=== PATIENT | male | born 1965 | race Caucasian/White ===

== ENCOUNTER 2024-06-05 17:50 | Inpatient (IN) | payer OTHER ==
[2024-06-05 18:43] VITALS: BMI 31.1
[2024-06-05] MEDS ORDERED: NICOTINE POLACRILEX 2 MG LOZENGE BC PRN (19:21)
[2024-06-05] MEDS ORDERED: METHOCARBAMOL 500 MG TABLET PO PRN (19:21)
[2024-06-05] MEDS ORDERED: POLYETHYLENE GLYCOL (HEALTHYLAX) 3350 17 GM PACKET PO PRN (19:21)
[2024-06-05] MEDS ORDERED: BENZONATATE 200 MG CAPSULE PO PRN (19:21)
[2024-06-05] MEDS ORDERED: ACETAMINOPHEN 325 MG TABLET (FP) PO PRN (19:21)
[2024-06-05] MEDS ORDERED: MAG HYDROX/AL HYDROX/SIMETH 30 ML UNIT-DOSE CUP PO PRN (19:21)
[2024-06-05] MEDS ORDERED: ONDANSETRON *ODT* 4 MG TABLET SL PRN (19:21)
[2024-06-05] MEDS ORDERED: IBUPROFEN 400 MG TABLET (FP) PO PRN (19:21)
[2024-06-05] MEDS ORDERED: IBUPROFEN 600 MG TABLET (FP) PO PRN (19:21)
[2024-06-05] MEDS ORDERED: hydrOXYzine PAMOATE 25 MG CAPSULE (FP) PO PRN (19:21)
[2024-06-05] MEDS ORDERED: LOPERAMIDE HCL 2 MG CAPSULE PO PRN (19:21)
[2024-06-05] MEDS ORDERED: P-EPHED 60MG/TRIPROLIDI 2.5MG TABLET PO PRN (19:21)
[2024-06-05] MEDS ORDERED: MAGNESIUM HYDROX 2400MG/30ML ORAL SUSPENSION 30 ML CUP PO PRN (19:21)
[2024-06-05] MEDS ORDERED: NICOTINE POLACRILEX 2 MG GUM BUC PRN (19:21)
[2024-06-05] MEDS ORDERED: BISMUTH SUBSALICYLATE 524 MG/30 ML PO PRN (19:21)
[2024-06-05] MEDS ORDERED: DICYCLOMINE HCL 10 MG CAPSULE PO PRN (19:21)
[2024-06-05] MEDS ORDERED: NALOXONE (NARCAN) HCL 4 MG/0.1 ML SPRAY NS PRN (19:21)
[2024-06-05] MEDS ORDERED: diazePAM 5 MG TABLET ONE (20:27)
[2024-06-05] MEDS: diazePAM 5 MG TABLET PO ONE (20:32)
[2024-06-05] MEDS ORDERED: MELATONIN 5 MG TABLETS PO SCH (22:00)
[2024-06-05] MEDS ORDERED: PRENATAL VITAMINS W/ FOLIC ACID TABLET (FP) PO ONE (22:19)
[2024-06-05] MEDS: MELATONIN 5 MG TABLETS PO SCH (22:25)
[2024-06-05] MEDS: THIAMINE 100 MG TABLET PO SCH (22:25)
[2024-06-05] MEDS: guaiFENesin 600 MG TABLET.ER (FP) PO PRN (22:44)
[2024-06-05] MEDS ORDERED: diazePAM 5 MG TABLET PO SCH (23:00)
[2024-06-05] MEDS: diazePAM 5 MG TABLET PO SCH (23:47)
[2024-06-06] MEDS: diazePAM 5 MG TABLET PO PRN (01:13)
[2024-06-06] MEDS: BENZOCAINE/MENTHOL (CHLORASEPTIC ) LOZENGE MM PRN (01:16)
[2024-06-06 09:25] LABS: POTASSIUM 3.1 mmol/L (3.5-5.1)
[2024-06-06 09:32] LABS: CALCIUM 8.4 mg/dL (8.5-10.1)
[2024-06-06 09:33] LABS: ALBUMIN 3.6 g/dl (3.4-5.0); BLOOD UREA NITROGEN 10.7 mg/dL (7-18)
[2024-06-06 09:36] LABS: CREATININE 0.7 mg/dL (0.55-1.3); HEMATOCRIT 40.4 % (35.4-49); HEMOGLOBIN 13.7 GM/dL (11.7-16.9); MCHC 33.9 g/dl (32.0-35.9); MEAN CELL VOLUME 88.3 fl (80-96); MEAN PLT VOLUME 10.2 fl (7.5-11.1); PLATELET COUNT 111 10^3/uL (134-434); RBC 4.58 M/mm3 (4.00-5.60); RDW 12.5 % (11.9-15.9); WHITE BLOOD COUNT 8.8 K/mm3 (4.0-10.0)
[2024-06-06 09:37] LABS: BILIRUBIN,TOTAL 0.9 mg/dL (0.2-1); TOT PROT 6.1 g/dl (6.4-8.2)
[2024-06-06] MEDS: PRENATAL VITAMINS W/ FOLIC ACID TABLET (FP) PO SCH (10:58)
[2024-06-06] MEDS: POTASSIUM CHLORIDE ORAL LIQUID 20 MEQ/15 ML PO ONE ×3 (11:30→18:27)
[2024-06-07] MEDS: diazePAM 5 MG TABLET PO SCH (05:52)
[2024-06-07] MEDS ORDERED: ALBUTEROL SO4 0.083% IH SOL 2.5 MG/3 ML VIAL.NEB. NEB PRN (12:44)
[2024-06-07] MEDS: METHOCARBAMOL 500 MG TABLET PO PRN (22:11)
[2024-06-08] MEDS: diazePAM 5 MG TABLET PO SCH (05:34)
[2024-06-08] MEDS: AMOXICILLIN 500 MG CAPSULE (FP) PO SCH (14:30)
[2024-06-08] MEDS: GABAPENTIN 300 MG CAPSULE PO SCH (15:27)
[2024-06-08] MEDS: QUEtiapine FUMARATE 100 MG TABLET (FP) PO SCH (22:41)
[2024-06-09] MEDS: diazePAM 5 MG TABLET PO ONE (06:18)
[2024-06-09 08:43] VITALS: BP 91/66; PULSE 65; RESP 17; TEMP 97.5
[2024-06-09] MEDS: NALOXONE (NYS OPIOID OVERDOSE PROGRAM) 4 MG/0.1 ML SPRAY NS PRN (12:07)
== END 2024-06-09 11:28 | disposition other institution (70) | DRG 774 ==
LOC: YASAS 17:50 → Y6N 20:35
PROVIDERS: ADMIT Allergy & Immunology; ATTEND Surgery
PROC: HZ2ZZZZ Detoxification Services for Substance Abuse Treatment (ICD-10-PCS; principal; 2024-06-05)
DX: F10.230 Alcohol dependence with withdrawal, uncomplicated (principal); F14.20 Cocaine dependence, uncomplicated; F12.20 Cannabis dependence, uncomplicated; F17.210 Nicotine dependence, cigarettes, uncomplicated; F39 Unspecified mood [affective] disorder; F19.282 Other psychoactive substance dependence with psychoactive substance-induced sleep disorder; F19.24 Other psychoactive substance dependence with psychoactive substance-induced mood disorder; F43.10 Post-traumatic stress disorder, unspecified; E87.6 Hypokalemia
CPT/HCPCS: 0241U-QW; 36415; 71046-TC-FY; 80053; 80305; 80307; 84132; 85027; 86780; 93005; 93010

== ENCOUNTER 2024-06-19 18:36 | Inpatient (IN) | payer OTHER ==
[2024-06-19 19:51] VITALS: BMI 29.6
[2024-06-19] MEDS ORDERED: ALBUTEROL SO4 HFA INHALER IH PRN (20:59)
[2024-06-19] MEDS ORDERED: hydrOXYzine PAMOATE 25 MG CAPSULE (FP) PO PRN (21:06)
[2024-06-19] MEDS ORDERED: guaiFENesin 600 MG TABLET.ER (FP) PO PRN (21:06)
[2024-06-19] MEDS ORDERED: POLYETHYLENE GLYCOL (HEALTHYLAX) 3350 17 GM PACKET PO PRN (21:06)
[2024-06-19] MEDS ORDERED: NICOTINE POLACRILEX 2 MG GUM BUC PRN (21:06)
[2024-06-19] MEDS ORDERED: BENZONATATE 200 MG CAPSULE PO PRN (21:06)
[2024-06-19] MEDS ORDERED: LOPERAMIDE HCL 2 MG CAPSULE PO PRN (21:06)
[2024-06-19] MEDS ORDERED: BENZOCAINE/MENTHOL (CHLORASEPTIC ) LOZENGE MM PRN (21:06)
[2024-06-19] MEDS ORDERED: NICOTINE POLACRILEX 2 MG LOZENGE BC PRN (21:06)
[2024-06-19] MEDS ORDERED: P-EPHED 60MG/TRIPROLIDI 2.5MG TABLET PO PRN (21:06)
[2024-06-19] MEDS ORDERED: MAG HYDROX/AL HYDROX/SIMETH 30 ML UNIT-DOSE CUP PO PRN (21:06)
[2024-06-19] MEDS ORDERED: DOCUSATE SODIUM 100 MG CAPSULE (FP) PO PRN (21:06)
[2024-06-19] MEDS ORDERED: ACETAMINOPHEN 325 MG TABLET (FP) PO PRN (21:06)
[2024-06-19] MEDS ORDERED: IBUPROFEN 600 MG TABLET (FP) PO PRN (21:06)
[2024-06-19] MEDS ORDERED: IBUPROFEN 400 MG TABLET (FP) PO PRN (21:06)
[2024-06-19] MEDS ORDERED: MAGNESIUM HYDROX 2400MG/30ML ORAL SUSPENSION 30 ML CUP PO PRN (21:06)
[2024-06-19] MEDS ORDERED: NALOXONE HCL 0.4 MG/ML VIAL IVPUSH PRN (21:06)
[2024-06-19] MEDS ORDERED: METHOCARBAMOL 500 MG TABLET PO PRN (21:06)
[2024-06-19] MEDS ORDERED: MELATONIN 5 MG TABLETS ONE (22:16)
[2024-06-19] MEDS: MELATONIN 5 MG TABLETS PO SCH (22:33)
[2024-06-19] MEDS: THIAMINE 100 MG TABLET PO SCH (22:33)
[2024-06-20] MEDS: PRENATAL VITAMINS W/ FOLIC ACID TABLET (FP) PO SCH (10:28)
[2024-06-29 06:27] VITALS: BP 138/85; PULSE 60; RESP 17; TEMP 96.9
[2024-06-29] MEDS: NALOXONE (NYS OPIOID OVERDOSE PROGRAM) 4 MG/0.1 ML SPRAY NS SCH (10:08)
== END 2024-06-29 12:49 | disposition home or self-care (01) | DRG 772 ==
LOC: YASAS 18:36 → Y3W 21:24
PROVIDERS: ADMIT Psychiatry & Neurology Pain Medicine; ATTEND Psychiatry & Neurology Pain Medicine
PROC: HZ42ZZZ Group Counseling for Substance Abuse Treatment, Cognitive-Behavioral (ICD-10-PCS; principal; 2024-06-19)
DX: F10.20 Alcohol dependence, uncomplicated (principal); F14.20 Cocaine dependence, uncomplicated; F12.20 Cannabis dependence, uncomplicated; F17.210 Nicotine dependence, cigarettes, uncomplicated; F39 Unspecified mood [affective] disorder; F41.9 Anxiety disorder, unspecified; Z59.01 Sheltered homelessness
CPT/HCPCS: 80305; 80307; 87811